=== PATIENT | male | born 1970 | race Caucasian/White ===

== ENCOUNTER 2017-11-10 08:00 | Outpatient (RCR) | payer BC, OTHER, SELFPAY ==
--- NOTE | 2017-07-22 16:05 | HP.PTEVAL ---
Patient's Visit Information MILDRED PINEDA is a 47 year old M referred to Physical Therapy by Sacha Romero DO with a diagnosis of L Massive RC repair on May 26, 2017. Date of Evaluation: 07/22/17 Physical Therapist: Rubia Camacho - Visit Plan Frequency: 1-2x /Week Duration: 4-6 Months Plan: 1X/week for 3 weeks for PROM (Dr Romero verball said to keep him around 130-140 degrees elevation and ER t0 approx 65 degrees) Dr Romero said he is ok with the pt being tight because he wants the shoulder to heal. He already took the pt out of the sling at 8 weeks cause the pt was complaining and he wanted to keep him in the sling till [address] Romero verbally the pt can start AAROM 11 weeks post op for [address]. [address] Romero pt is able to start light strengthening at 14 weeks (2-3#). Dr Romero said full go at 3 months from 07-22-2017. ++modalities PRN - Subjective Subjective: In the gym he was bench pressing mid February and and felt a tear. DOS was May 26 for L massive RC repair. He has done nothing for the last 8 weeks. Pt took his sling off at 8 weeks. said ok to start PT at 8 weeks (yesterday). 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 Pt reports that his pain is minimal. In the evenings he will ache a little. He is not sleeping well....last night was the first night to sleep in a bed. He is R handed. Back to driving. Still having trouble getting short and coat on. - Pain L shoulder pain Pain Intensity (Out of 10): 2 Pain Intensity Range: 3 - Objective PROM L Shoulder ER 60 degrees, Shoulder flexion 135 degrees,L shoulder Abd 125 degrees. Pt demonstrates good form with pendulum exercises - Goals Goal 1:: I HEP Goal Time Frame: 12-16 Weeks Goal 2:: Increase L shoulder AROM to full ROM at DC Goal Time Frame: 12-16 Weeks Goal 3:: Increase L shoulder strength to 4/5 all planes (ER, IR, flex, abd) at DC Goal Time Frame: 12-16 Weeks - Rehabilitation Potential Rehabilitation Potential: Good - Anticipated Interventions Patient/Client Instruction: Educate patient on: Plan of Care For the Purpose of:: To decrease pain, To increase ROM, To improve nutrient delivery to tissue, To improve muscle performance and motor function, To improve ability to perform ADL's, To increase tolerance to activity/condition/position, To improve performance and independence with ADL's, To improve ability of physical actions for home/community/work/leisure, To improve health of tissue, To increase flexibility/ROM Therapeutic Exercise to Include: Strength training, Postural training, Passive ROM, Active ROM, Scapular Strength/Stabilization For the Purpose of:: To decrease pain, To increase ROM, To improve nutrient delivery to tissue, To improve muscle performance and motor function, To improve ability to perform ADL's, To improve health of tissue, To decrease soft tissue restriction, To increase flexibility/ROM Manual Therapy Techniques to Include: Passive ROM For the Purpose of:: To increase ROM, To improve nutrient delivery to tissue, To improve muscle performance and motor function IF ES: Yes Cryotherapy (ice pack, ice massage): Yes Thermo therapy (hot pack): Yes For the Purpose of:: To decrease pain, To decrease swelling/inflammation, To improve nutrient delivery to tissue Thank you for the opportunity to evaluate your patient. For Medicare and Medicare HMO plans, please review the plan of care and approve it. It will need to be FAXED BACK to us at [phone] for Medicare purposes. Please let me know if there are questions or concerns regarding this plan of care. Physician Signature: Date:
--- NOTE | 2017-09-29 17:13 | HP.PTREVAL_ITS ---
Sacha Romero, DO, It has been my pleasure to treat MILDRED PINEDA over the last 17 visits for L Massive RC repair on May 26, 2017. Please see the progress note below for an update on the physical therapy plan of care! Subjective: Did well with new ex's last session - sore, but no pain. States he can still have some pain if he rolls over and sleeps on it, but other than that it's doing well. Remains compliant with HEP. Pt reports 4/10 pain if he lays on it wrong while sleeping other than that he is just achy. Objective/Function: Pt's AROM overhead demos less UT compensation than last week. Bee progressions well without incidence. Measured By PT: L shld flexion 155 degrees, L shld abd 155 degrees, IR at 90 degrees abd is 65 degrees and ER at 90 degrees abd is 66 degrees. L shld MMT: ER 3+/5, IR 4-/5, flexion and abd 4-/5. Plan Plan: Cont end-range of motion and light strengthening (2-3#). Dr Romero said full go strengthening at 3 months from 07-22-2017. Goals Goal 1:: I HEP Goal Time Frame: 12-16 Weeks Goal 2:: Increase L shoulder AROM to full ROM at DC Goal Time Frame: 12-16 Weeks Goal 3:: Increase L shoulder strength to 4/5 all planes (ER, IR, flex, abd) at DC Goal Time Frame: 12-16 Weeks Anticipated Interventions Patient/Client Instruction: Educate patient on: Plan of Care For the Purpose of:: To decrease pain, To increase ROM, To improve nutrient delivery to tissue, To improve muscle performance and motor function, To improve ability to perform ADL's, To increase tolerance to activity/condition/ position, To improve performance and independence with ADL's, To improve ability of physical actions for home/community/work/leisure, To improve health of tissue, To increase flexibility/ROM Therapeutic Exercise to Include: Strength training, Postural training, Passive ROM, Active ROM, Scapular Strength/Stabilization For the Purpose of:: To decrease pain, To increase ROM, To improve nutrient delivery to tissue, To improve muscle performance and motor function, To improve ability to perform ADL's, To improve health of tissue, To decrease soft tissue restriction, To increase flexibility/ROM Manual Therapy Techniques to Include: Passive ROM For the Purpose of:: To increase ROM, To improve nutrient delivery to tissue, To improve muscle performance and motor function IF ES: Yes Cryotherapy (ice pack, ice massage): Yes Thermo therapy (hot pack): Yes For the Purpose of:: To decrease pain, To decrease swelling/inflammation, To improve nutrient delivery to tissue Please do not hesitate to contact me at [phone] by phone or Fax: if you have questions or concerns regarding this new plan of care! Sincerely, Rubia Camacho
--- NOTE | 2018-01-29 12:52 | HP.PTDCNRP_ITS ---
HP - Discharge Summary (1) - Patient Information MILDRED PINEDA was seen in my office for initial evaluation on 07/22/17. The following Plan of Care was established for this patient: Initial Frequency: 1-2x /Week Initial Duration: 4-6 Months - Anticipated Interventions Patient/Client Instruction: Educate patient on: Plan of Care For the Purpose of:: To decrease pain, To increase ROM, To improve nutrient delivery to tissue, To improve muscle performance and motor function, To improve ability to perform ADL's, To increase tolerance to activity/condition/ position, To improve performance and independence with ADL's, To improve ability of physical actions for home/community/work/leisure, To improve health of tissue, To increase flexibility/ROM Therapeutic Exercise to Include: Strength training, Postural training, Passive ROM, Active ROM, Scapular Strength/Stabilization For the Purpose of:: To decrease pain, To increase ROM, To improve nutrient delivery to tissue, To improve muscle performance and motor function, To improve ability to perform ADL's, To improve health of tissue, To decrease soft tissue restriction, To increase flexibility/ROM Manual Therapy Techniques to Include: Passive ROM For the Purpose of:: To increase ROM, To improve nutrient delivery to tissue, To improve muscle performance and motor function IF ES: Yes Cryotherapy (ice pack, ice massage): Yes Thermo therapy (hot pack): Yes For the Purpose of:: To decrease pain, To decrease swelling/inflammation, To improve nutrient delivery to tissue This patient was last seen in our office 11/10/17. Pertinent comments regarding their Physical therapy will appear below: DC PT to I HEP program. Pt is doing well with his strengthening on his own. At this point I will be discontinuing this patient from physical therapy. I would be happy to see this patient again in the future if found appropriate by the physician. Thank you! Rubia Camacho
== END 2017-11-10 19:00 | disposition home or self-care (01) ==
LOC: PT 08:00
PROVIDERS: Family Provider Family Medicine; PCP Family Medicine; Visit Provider Orthopaedic Surgery
DX: M75.102 Unspecified rotator cuff tear or rupture of left shoulder, not specified as traumatic (principal)
CPT/HCPCS: 97110; 97140; 97161

== ENCOUNTER → 2018-03-29 11:55 | Outpatient (CLI) | payer BC, SELFPAY ==
[2018-03-29 12:31] LABS: Amphetamine Urine VISTA NEGATIVE (<1000 ng/mL); Barbiturate Urine VISTA NEGATIVE (< 200 ng/mL); Benzodiazepine Urine VISTA NEGATIVE (< 200 ng/mL); Cocaine Urine VISTA NEGATIVE (< 300 ng/mL); Ecstacy Urine VISTA NEGATIVE (< 500 ng/mL); Methadone Urine VISTA NEGATIVE (< 300 ng/mL); PCP Urine VISTA NEGATIVE (< 25 ng/mL); THC Urine VISTA NEGATIVE (< 50 ng/mL); Vista UDS pH Range 5
== END ==
PROVIDERS: Family Provider Family Medicine; PCP Family Medicine; Visit Provider Anesthesiology Pain Medicine
DX: F11.20 Opioid dependence, uncomplicated (principal)
CPT/HCPCS: 80307

== ENCOUNTER → 2018-10-01 08:16 | Outpatient (CLI) | payer BC, SELFPAY ==
--- NOTE | 2018-10-01 08:20 | RAD_ITS ---
STUDY: X-RAY - RIGHT KNEE REASON FOR EXAM: Male, 48 years old. Knee pain. TECHNIQUE: 4 view(s) of the knee. COMPARISON: None. FINDINGS: There are surgical screws in the distal femur and proximal tibia likely due to previous anterior cruciate ligament repair. Normal visualized proximal tibia and fibula. Normal proximal tibiofibular articulation. There is no demonstrated fracture. There is severe degenerative arthrosis of the medial femorotibial compartment with severe joint space narrowing. There is moderate degenerative arthrosis of the lateral femorotibial compartment with moderate joint space narrowing. There is moderate degenerative arthrosis of the patellofemoral articulation. There is a soft tissue prominence in the suprapatellar region suggesting a small volume joint effusion. The soft tissue structures are unremarkable. RAD/Knee 4 or More Views IMPRESSION: 1. Postoperative changes. 2. Severe degenerative arthrosis. 3. Possible small joint effusion. Electronically Signed: Artem Herrera MD at 12:35 EST Tel , Service support ,
== END ==
PROVIDERS: Family Provider Family Medicine; PCP Family Medicine; Referring Provider Orthopaedic Surgery; Visit Provider Orthopaedic Surgery
DX: M25.561 Pain in right knee (principal)
CPT/HCPCS: 73564

== ENCOUNTER → 2018-12-09 11:56 | Outpatient (CLI) | payer BC, SELFPAY ==
[2018-01-26 09:19] VITALS: BMI 25.7
[2018-12-09 12:44] LABS: Amphetamine Urine VISTA NEGATIVE (<1000 ng/mL); Barbiturate Urine VISTA NEGATIVE (< 200 ng/mL); Benzodiazepine Urine VISTA NEGATIVE (< 200 ng/mL); Cocaine Urine VISTA NEGATIVE (< 300 ng/mL); Ecstacy Urine VISTA NEGATIVE (< 500 ng/mL); Methadone Urine VISTA NEGATIVE (< 300 ng/mL); PCP Urine VISTA NEGATIVE (< 25 ng/mL); THC Urine VISTA NEGATIVE (< 50 ng/mL); Vista UDS pH Range 5
== END ==
PROVIDERS: Family Provider Family Medicine; PCP Family Medicine; Referring Provider Anesthesiology Pain Medicine; Visit Provider Anesthesiology Pain Medicine
DX: F11.20 Opioid dependence, uncomplicated (principal)
CPT/HCPCS: 80307

== ENCOUNTER 2018-12-21 18:21 | Emergency (ER) | payer BC, SELFPAY ==
[2018-12-21 18:22] VITALS: BP 159/88; PULSE 90; RESP 16; TEMP 36.6; O2SAT 97; BMI 25.0
--- NOTE | 2018-12-21 18:54 | RAD_ITS ---
STUDY: X-RAY - LEFT HUMERUS REASON FOR EXAM: Male, 48 years old. Pain. TECHNIQUE: 2 view(s) of the humerus. COMPARISON: None. FINDINGS: Normal visualized humerus. There is no demonstrated fracture or osseous destructive process. There is no demonstrated soft tissue abnormality. RAD/Humerus min 2 Views IMPRESSION: Normal x-ray examination of the humerus. Electronically Signed: Ezekiel Bearden MD at 19:15 EDT , Service support ,
--- NOTE | 2018-12-21 19:36 | ED.DCSUM_ITS ---
- ER Visit Summary Date of Service: 12/21/18 Chief Complaint: Left arm pain History of Present Illness: The patient is a 48 M who was swinging a baseball bat tonight and felt a pulling sensation in his left distal upper arm. He is right-hand dominant. He has full range of motion of the left arm with no pa resthesias. He has had prior left rotator cuff surgery. Physical Examination: Vital signs significant for blood pressure of 159/88, otherwise unremarkable. Patient sitting upright in bed no acute distress. Head neck examination is normal. Heart is regular rate and rhythm. Lung sounds are clear. Left upper extremity examination reveals mild tenderness to palpation of the dis farida left bicep. He has full range of motion of the elbow and shoulder. He has normal sensation normal pulses on testing. No overlying skin changes are noted. Test Results: Left humerus x-rays are obtained with no evidence of bony abnormality. Emergency Department Course and Treatment: I discussed with the patient I believe he has a strain of with the bicep tendons. This should heal on its own. He is already on tramadol twice a day for an arthritic knee. He will be written for anti-inflammatories to take in addition if needed. Patient will follow with his primary care physician. Treatment Plan: [] Disposition: Discharge Impression: Left biceps strain This note was generated with [employer] dictation software. It may contain incorrect words, spelling, and punctuation that were not noted in review of the chart prior to signing ED Disposition - Plan for ED Patient: Referrals: Deuce Chang DO [Primary Care Provider] -
--- NOTE | 2018-12-21 19:36 | ED.DEP ---
ED Disposition - Plan for ED Patient: Disposition: Home or Assisted Living Instructions: ED Strain Muscle Ext Prescriptions: Naproxen [Naprosyn] 500 mg PO BID PRN PRN #20 tablet PRN Reason: Pain Referrals: Deuce Chang DO [Primary Care Provider] - 1-2 Weeks
[2018-12-21 19:56] VITALS: BP 126/75; PULSE 71; RESP 16; O2SAT 99
== END 2018-12-21 19:57 | disposition home or self-care (01) ==
PROVIDERS: Emergency Provider Emergency Medicine; Family Provider Family Medicine; PCP Family Medicine
DX: S46.212A Strain of muscle, fascia and tendon of other parts of biceps, left arm, initial encounter (principal); X50.9XXA Other and unspecified overexertion or strenuous movements or postures, initial encounter; Y93.64 Activity, baseball; Y92.9 Unspecified place or not applicable; Y99.8 Other external cause status; Z87.828 Personal history of other (healed) physical injury and trauma
CPT/HCPCS: 73060; 99282

== ENCOUNTER → 2019-08-09 10:26 | Outpatient (CLI) | payer BC, SELFPAY ==
[2018-12-24 07:52] VITALS: BMI 25.0
[2019-08-09 11:32] LABS: Amphetamine Urine VISTA NEGATIVE (<1000 ng/mL); Barbiturate Urine VISTA NEGATIVE (< 200 ng/mL); Benzodiazepine Urine VISTA NEGATIVE (< 200 ng/mL); Cocaine Urine VISTA NEGATIVE (< 300 ng/mL); Ecstacy Urine VISTA NEGATIVE (< 500 ng/mL); Methadone Urine VISTA NEGATIVE (< 300 ng/mL); PCP Urine VISTA NEGATIVE (< 25 ng/mL); THC Urine VISTA NEGATIVE (< 50 ng/mL); Vista UDS pH Range 5
== END ==
PROVIDERS: Family Provider Family Medicine; PCP Family Medicine; Referring Provider Anesthesiology Pain Medicine; Visit Provider Anesthesiology Pain Medicine
DX: F11.20 Opioid dependence, uncomplicated (principal)
CPT/HCPCS: 80307

== ENCOUNTER → 2020-02-13 08:42 | Outpatient (CLI) | payer BC, SELFPAY ==
[2019-10-29 12:12] VITALS: BMI 25.0
[2020-02-13 09:15] LABS: Hemoglobin 14.3 g/dL (13.0-16.5); Mean Corp Hgb Conc 32.5 g/dL (32-36); Mean Corpuscular Hgb 32.4 pg (27.0-32.0); Mean Corpuscular Volume 99.8 fL (80-94); Mean Platelet Vol. 9.8 fl (6.2-12.0); Platelet Count 291 K/mm3 (150-450); RBC Distribution Width CV 13.1 % (11.6-14.6); RBC Distribution Width SD 48.5 fl (35.1-43.9); Red Blood Count 4.41 M/mm3 (4.6-6.2); White Blood Count 4.9 K/mm3 (4.4-11.0)
[2020-02-13 09:41] LABS: Vitamin D,25 Hydroxy 36.1 ng/mL
[2020-02-13 09:52] LABS: AST(SGOT) 22 U/L (15-37); Alanine Aminotransfer ALT/SGPT 29 U/L (16-61); Albumin, Serum 3.6 g/dL (3.2-5.0); Alkaline Phosphatase 53 U/L (45-117); Anion Gap 7 (5-15); BUN 20 mg/dL (7-18); BUN/Creat Ratio 16.7 RATIO (10-20); Calcium,Total 8.7 mg/dL (8.5-10.1); Chloride 107 mmol/L (98-107); Cholesterol 196 mg/dL (200); EST Glomerular Filtration Rate 68 mL/min (>60); Est Glom Filt Rate - Afr Amer 82 mL/min (>60); Globulin 3.5 g/dL (2.2-4.2); Glucose 96 mg/dL (74-106); High Density Lipoprotein 36 mg/dL; PSA,Total- Diagnostic 0.36 ng/mL (0.0-4.0); Potassium 3.7 mmol/L (3.5-5.1); Protein, Total 7.1 g/dL (6.4-8.2); Sodium Level 141 mmol/L (136-145); Thyroid Stim Hormone (TSH) 1.53 uIU/mL (0.358-3.74); Triglycerides 113 mg/dL; Very Low Density Lipoprotein 23 mg/dL (5-40)
[2020-02-16 14:08] LABS: Testosterone, Free 14.76 ng/dL (5.00-21.00)
[2020-02-16 15:30] LABS: Testosterone, % Free 1.82 % (1.50-4.20); Testosterone, Total 811 ng/dL (264-916)
== END ==
PROVIDERS: PCP Family Medicine; Referring Provider Family Medicine; Visit Provider Family Medicine
DX: Z00.00 Encounter for general adult medical examination without abnormal findings (principal); R53.83 Other fatigue
CPT/HCPCS: 36415; 80053; 80061; 82306; 84153; 84402; 84403; 84443; 85027

== ENCOUNTER → 2020-02-15 11:34 | Outpatient (CLI) | payer BC, SELFPAY ==
[2019-10-29 12:12] VITALS: BMI 25.0
[2020-02-15 14:21] LABS: Amphetamine Urine VISTA NEGATIVE (<1000 ng/mL); Barbiturate Urine VISTA NEGATIVE (< 200 ng/mL); Benzodiazepine Urine VISTA NEGATIVE (< 200 ng/mL); Cocaine Urine VISTA NEGATIVE (< 300 ng/mL); Ecstacy Urine VISTA NEGATIVE (< 500 ng/mL); Methadone Urine VISTA NEGATIVE (< 300 ng/mL); PCP Urine VISTA NEGATIVE (< 25 ng/mL); THC Urine VISTA NEGATIVE (< 50 ng/mL); Vista UDS pH Range 5
== END ==
PROVIDERS: PCP Family Medicine; Referring Provider Anesthesiology Pain Medicine; Visit Provider Anesthesiology Pain Medicine
DX: F11.20 Opioid dependence, uncomplicated (principal)
CPT/HCPCS: 80307

== ENCOUNTER → 2020-03-20 | Outpatient (CLI) | payer BC, SELFPAY ==
[2019-10-29 12:12] VITALS: BMI 25.0
== END | disposition home or self-care (01) ==
LOC: LABSPEC 03-21 13:39
PROVIDERS: PCP Family Medicine; Referring Provider Internal Medicine; Visit Provider Internal Medicine
DX: Z78.9 Other specified health status (principal); Z71.84 Encounter for health counseling related to travel
CPT/HCPCS: 87635; G2023; U0003

== ENCOUNTER → 2020-11-26 12:50 | Outpatient (CLI) | payer BC, SELFPAY ==
[2019-10-29 12:12] VITALS: BMI 25.0
--- NOTE | 2020-11-26 12:54 | EKG12_ITS ---
Test Reason : PREOP Blood Pressure : / mmHG Vent. Rate : 069 BPM Atrial Rate : 069 BPM P-R Int : 150 ms QRS Dur : 090 ms QT Int : 400 ms P-R-T Axes : 066 063 045 degrees QTc Int : 428 ms Normal sinus rhythm Normal ECG Confirmed by ZOHRA HERNANDEZ, ROBIN ([id number]), mapping editor MELISSA PEDROZA ([id number]) on 11/27/2020 9:06:54 AM Referred By: Steve Mckeon Confirmed By:ROBIN العلي MD
--- NOTE | 2020-11-26 13:05 | CT_ITS ---
STUDY: CT SCAN LOWER EXTREMITY RIGHT REASON FOR EXAM: Male, 50 years old. VALGUS DEFORMITY,NOT ELSEWHERE CLASSIFIED,R KNEE RADIATION DOSAGE (If Supplied By Facility): CTDIvol = ( 18.76 ) mGy, DLP = ( 1341.38 ) mGycm. Individualized dose optimization techniques were used for this CT.? TECHNIQUE: Multiple axial tomographic images of the right hip joint, right knee joint and right ankle joint were obtained. Coronal and sagittal reconstructions obtained as well. COMPARISON: None. FINDINGS: Imaging of the hip joint was performed. There is good alignment. No significant abnormality is seen. Moderate to marked degree of joint space narrowing of the medial compartment of the knee joint with degenerative spur formation along the distal medial femoral condyle. Small degenerative spurs also seen along the medial tibial plateau. There is an 8 mm subchondral cyst within the proximal tibial metaphysis. There is also evidence of a 8mm cyst in the subchondral region of the medial tibial plateau with evidence of degenerative spur formation along the lateral femoral condyle and lateral tibial plateau. Marked degree of osteoarthritis with degenerative bone spur of the patellofemoral joint. The patient is status post anterior cruciate ligament repair. Imaging of the ankle joint was obtained. No significant abnormality is seen. CT/Extremity Lower without Contra IMPRESSION: Degenerative changes of the knee joint as described. Evidence of prior anterior cruciate ligament repair. Electronically Signed: Sebastian Buckley MD at 13:58 EDT , Service support ,
[2020-11-26 14:25] LABS: Absolute Lymphocyte Count 2.06 X10^3/uL (0.83-4.51); Absolute Neutrophil Count 4.2 X10^3/uL (2.0-7.7); Basophil# 0.08 X10^3/uL; Basophil% 1.1 % (0-1); Eosinophil# 0.47 X10^3/uL; Eosinophils% 6.4 % (0-5); Hematocrit 41.1 % (40-54); Hemoglobin 13.5 g/dL (13.0-16.5); Lymphocyte # 2.06 X10^3/ul (4.0); Lymphocyte % 27.9 % (19-41); Mean Corp Hgb Conc 32.8 g/dL (32-36); Mean Corpuscular Hgb 32.9 pg (27.0-32.0); Mean Corpuscular Volume 100.2 fL (80-94); Mean Platelet Vol. 10.4 fl (6.2-12.0); Monocyte# 0.56 X10^3/uL; Monocyte% 7.6 % (0-10); NRBC Flagged by Analyzer 0 % (0-5); Neutrophil # 4.19 X10^3/uL (2.7-7.7); Neutrophil % 56.6 % (47-70); Platelet Count 319 K/mm3 (150-450); RBC Distribution Width CV 13.3 % (11.6-14.6); RBC Distribution Width SD 49.1 fl (35.1-43.9); White Blood Count 7.4 K/mm3 (4.4-11.0)
[2020-11-26 14:48] LABS: Anion Gap 6 (5-15); BUN 21 mg/dL (7-18); BUN/Creat Ratio 16.3 RATIO (10-20); Calcium,Total 8.8 mg/dL (8.5-10.1); Chloride 104 mmol/L (98-107); Creatinine, Serum 1.29 mg/dL (0.70-1.30); EST Glomerular Filtration Rate 62 mL/min (>60); Est Glom Filt Rate - Afr Amer 75 mL/min (>60); Glucose 76 mg/dL (74-106); Potassium 3.7 mmol/L (3.5-5.1); Sodium Level 139 mmol/L (136-145)
== END ==
PROVIDERS: Physician Assistant Surgical; PCP Family Medicine; Referring Provider Specialist; Visit Provider Specialist
DX: Z01.812 Encounter for preprocedural laboratory examination (principal); Z01.810 Encounter for preprocedural cardiovascular examination; M21.061 Valgus deformity, not elsewhere classified, right knee
CPT/HCPCS: 36415; 73700; 80048; 85025; 93005

== ENCOUNTER 2020-12-13 22:13 | Emergency (ER) | payer BC, SELFPAY ==
[2019-10-29 12:12] VITALS: BMI 25.0
[2020-12-13 22:14] VITALS: BP 100/60; PULSE 107; RESP 18; TEMP 36.4; O2SAT 96; BMI 24.4
--- NOTE | 2020-12-13 22:23 | ED.VIS.GEN ---
History of Present Illness Chief Complaint: Lower Extremity Injury Informant: Patient, Significant Other Onset: Hours Context: Sudden Onset Timing: Continuous - Postop bleeding Quality: Postop bleeding Location: Right total knee arthroplasty today Current Severity: Mild Maximum Severity: Mild Worsened by: Nothing Relieved by: Nothing Associated Symptoms: None Narrative: Patient is a 50-year-old male who had a right total knee arthroplasty performed by Dr. Yonis Mckeon at 1030. Patient states he went home at 1330. Patient noted his dressing was saturated and presents because of bleeding. He was standing when the noted the bleeding. Presently has no discomfort. He has no history of bruising easily or problems with bleeding. Prior similar symptoms: No Recent Illness/Hospitalization: Yes - Past Medical History (1) Scoliosis Status: Acute Past Medical History - Allergies and Home Meds Allergies/Adverse Reactions: Allergies No Known Allergies Allergy (Verified 12/13/20 22:16) Primary Care Physician: Deuce Chang DO [Primary Care Provider] - Steve Mckeon MD [STAFF PHYSICIAN] - Prior records reviewed: Yes Surgical History: total knee arthroplasty Lives: Spouse/ Significant Other Smoking Status: Never smoker Alcohol: Rare Drugs: None Review of Systems General: Denies: Chills, Fever, Malaise, Subjective Gastrointestinal: Denies: Nausea, Vomiting Musculoskeletal: Denies: Myalgias, Arthralgias, Swelling, Extremity Pain Skin: Reports: Wounds - Postop bleeding. Denies: Rash Neurological: Denies: Weakness, Parasthesia, Numbness Hematologic: Denies: Easy bruising, Easy bleeding Physical Exam Vital Signs/Narrative: Vital Signs Temp Pulse Resp BP Pulse Ox 12/13/20 22:14 97.6 F L 107 H 18 100/60 96 Inital Vital Signs reviewed: Yes General: Well nourished, Well developed, No Acute Distress Head: Normocephalic, Atraumatic Eyes: Perrl, EOMI Cardiovascular: Regular rate, Regular rhythm Respiratory: No distress Extremities: Nontender, No edema, - - Incision is intact. There is slight blood noted inferior aspect of the incision site. There is no fluctuance. There is no erythema, warmth or induration. There is bruising laterally and medially, which is expected. Skin: Normal color, No rash Neurological: Alert, Oriented x3. Negative for: Normal Sensation, Normal Gait Psychological: Normal affect Diagnostic/Tx/Re-eval - Medical Decision Making Prior to removing the dressing Dr. Flaquito garza was paged since he is on-call. He agrees with removing the dressing. He recommended A&E ointment and dressing with Loco wrap. He recommends the patient going home elevating his leg and applying a weight over the area. Dressing was removed. There is no active bleeding. The incision site was clean. Unable to express any blood. Nurse is applying dressing. Will observe for 3245 minutes and if there is no additional bleeding he will be discharged to home to follow-up with Dr. Mckeon. Patient was observed for 1.25 hours. There is no evidence of any additional bleeding. He will be discharged home. ED Disposition - Plan for ED Patient: Disposition: Home or Assisted Living Diagnosis: Postoperative bleeding from incision Instructions: ED Post Op Wound Check, Bleeding Referrals: Deuce Chang DO [Primary Care Provider] - Steve Mckeon MD [STAFF PHYSICIAN] -
[2020-12-13 23:49] VITALS: BP 132/67; PULSE 90; RESP 18; O2SAT 97
== END 2020-12-13 23:50 | disposition home or self-care (01) ==
LOC: ED 22:52
PROVIDERS: Emergency Provider Emergency Medicine; PCP Family Medicine
DX: M96.830 Postprocedural hemorrhage of a musculoskeletal structure following a musculoskeletal system procedure (principal); Y83.4 Other reconstructive surgery as the cause of abnormal reaction of the patient, or of later complication, without mention of misadventure at the time of the procedure; Z96.651 Presence of right artificial knee joint
CPT/HCPCS: 99282

== ENCOUNTER 2021-04-06 12:56 | Emergency (ER) | payer BC, SELFPAY ==
[2021-04-06 12:56] VITALS: BP 134/85; PULSE 84; RESP 16; TEMP 36.7; O2SAT 99; BMI 25.7
[2021-04-06] MEDS: Diphth,Pertuss(Acell),Tet Vac 0.5 ML Vial IM (14:19)
--- NOTE | 2021-04-06 15:03 | EX.ED.UPPERE ---
HPI History of Present Illness Chief Complaint: Laceration Informant: patient Onset/Context/Timing Onset: Today Current Severity: Mild Maximum Severity: Mild Narrative Narrative: Patient presents with left thumb laceration. He was cutting corn off the cob when the slicer slipped and cut his left thumb. He is right-hand dominant. He is unsure of his last tetanus update. PFSH PFSH no medical history Home Medications meloxicam 7.5 mg PO DAILY 12/21/18 [History Last Taken Unknown] tramadol 50 mg tablet 50 mg PO BID 09/02/19 [History Last Taken Unknown] benzonatate 100 mg capsule 100 mg PO TID PRN #30 cap 10/29/19 [Rx Last Taken Unknown] Allergy/AdvReac Type Severity Reaction Status Date / Time No Known Allergies Allergy Verified 04/06/21 12:58 Surgical History achilles tendon reconstruction H/O arthroscopic knee surgery H/O nasal septoplasty S/P ACL reconstruction S/P left rotator cuff repair S/P right knee arthroscopy Social History Smoking Status: Never smoker alcohol intake: current alcohol intake frequency: a few times a week ROS ROS ED Constitutional Constitutional ED: Denies chills or fever(s) Eyes Eyes: Denies change in vision ENT ENT ED: Denies sore throat Cardiovascular Cardiovascular: Denies chest pain Respiratory/Chest Respiratory/Chest: Denies cough or dyspnea Gastrointestinal Gastrointestinal: Denies abdominal pain, diarrhea, nausea or vomiting Genitourinary Genitourinary ED: Denies dysuria Musculoskeletal Musculoskeletal: Reports other Details: Left thumb laceration ; Denies back pain Integumentary Denies rash Neurologic Neurologic: Denies headache(s) or weakness Psychiatric Psychiatric: Denies anxiety or depression EXAM Physical Exam Const Vital Signs: 04/06/21 12:56 Temperature 98.0 F Temperature Source Temporal Pulse Rate 84 Respiratory Rate 16 Blood Pressure 134/85 H Blood Pressure Mean 101 Pulse Ox 99 Oxygen Delivery Method Room Air Positive well nourished and well developed General Appearance ED: well developed HEENT Reports normocephalic and head/scalp atraumatic Eyes PERRL and EOMs intact bilaterally Neck supple Chest Wall inspection of chest normal and palpation of chest normal Resp normal respiratory effort and clear to auscultation bilaterally Cardio regular rate and regular rhythm GI normal to inspection, nondistended, normoactive bowel sounds Palpation: soft Extremity Extremity Narrative: Skin avulsion along the left thumb. Wound measures 2 cm x 4 mm. Moderate bleeding is noted. Neuro oriented x3 and no sensory deficits noted Sensorium / Orientation: alert Motor Exam: strength 5/5 throughout Psych mental status grossly normal Skin no rashes or lesions noted Skin Narrative: Left thumb skin avulsion as noted above MDM MDM MDM Narrative Medical decision making narrative: Pressure dressing is applied and patient elevates his hand above the level of his heart. Treatment and Re-Evaluation Comments:: On repeat evaluation bleeding is improved. Wound is cleansed and Surgicel was placed. Pressure dressing is reapplied. On final repeat check bleeding is under good control. He will leave pressure dressing in place. Wound care instructions are provided. Tetanus update has been given. Discharge Plan Triage Chief Complaint: Laceration ED Provider: Vanda Wynn Dx/Rx/DC Orders Clinical Impression: Avulsion of skin of finger Instructions: ED Skin Avulsion Prescriptions: No Action tramadol 50 mg tablet 50 mg PO BID RF: 0 benzonatate [Tessalon Perles] 100 mg capsule 100 mg PO TID PRN (Reason: cough) Qty: 30 RF: 0 meloxicam 15 MG tablet 7.5 mg PO DAILY RF: 0 Referrals: LEMUEL DESIR [Other] - As Needed Disposition Disposition: Home, Self Care Discharge Date/Time: 04/06/21 15:19
[2021-04-06 15:13] VITALS: BP 147/94; PULSE 89; RESP 16
== END 2021-04-06 15:19 | disposition home or self-care (01) ==
PROVIDERS: Emergency Provider Emergency Medicine; PCP Family Medicine
DX: S61.012A Laceration without foreign body of left thumb without damage to nail, initial encounter (principal); W26.8XXA Contact with other sharp object(s), not elsewhere classified, initial encounter; Y93.G1 Activity, food preparation and clean up; Y92.9 Unspecified place or not applicable; Y99.8 Other external cause status
CPT/HCPCS: 90471; 90715; 99282

== ENCOUNTER 2024-02-29 08:45 | Day surgery (SDC) | payer BC, SELFPAY ==
[2024-02-29] VITALS (8 sets, daily range): BP systolic 97–129; BP diastolic 57–89; PULSE 67–86; RESP 14–16; TEMP 36.1–36.6; O2SAT 95–97; BMI 26.7
[2024-02-29] MEDS: Lactated Ringers 1,000 ML 15 ML IV (09:00)
--- NOTE | 2024-02-29 09:56 | HP.PCM_ITS ---
HPI - General General Date of Admission: 02/29/24 Date of Service: 02/29/24 Chief Complaint: Screening colonoscopy HPI Narrative MILDRED PINEDA, is a 53 M who presents today for screening colonoscopy. He has a positive family history of polyps in 2 second-degree relatives and colon cancer in a second-degree relative. [facility] Medical History (Updated 02/25/24 @ 14:12 by Laine Fine) Wears contact lenses Non-smoker History of stress test Home Medications ?Medication ?Instructions ?Recorded ?Last Taken ?Type NK 02/25/24 Unknown History Allergy/AdvReac Type Severity Reaction Status Date / Time No Known Allergies Allergy Verified 02/29/24 09:19 Family History (Updated 01/28/24 @ 11:18 by Karly Lundberg) Father Colon polyps Aunt Colon polyps Grandmother Colon cancer Surgical History (Updated 02/25/24 @ 14:12 by Laine Fine) History of wisdom tooth extraction History of repair of right rotator cuff History of total right knee replacement Hx of colonoscopy H/O nasal septoplasty achilles tendon reconstruction S/P left rotator cuff repair S/P right knee arthroscopy H/O arthroscopic knee surgery S/P ACL reconstruction Social History (Updated 01/28/24 @ 11:18 by Karly Lundberg) household members: spouse current occupational status: employed Smoking Status: Never smoker alcohol intake: current alcohol intake frequency: a few times a week substance use type: does not use ROS Review of Systems ROS Unobtainable: other Constitutional Constitutional: Denies fatigue, fever(s), poor appetite, weight gain or weight loss ENT HEENT: Denies mouth lesions Cardiovascular Cardiovascular: Denies abdominal bloating, abdominal edema or abdominal pain Respiratory/Chest Respiratory/Chest: Denies change in mental status, change in phlegm color, chest congestion or chest tightness Gastrointestinal Gastrointestinal: Denies belching, bloating, change in bowel habits, change in stool character, chewing difficulty, coffee ground emesis, constipation, cramping, diarrhea, dyspepsia, dysphagia, early satiety, excessive flatus, fecal incontinence, heartburn, hematemesis, hematochezia, hemorrhoids, loose stools, melena, nausea, odynophagia, rectal bleeding, tenesmus, vomiting or weight changes Genitourinary Genitourinary: Denies abdominal discomfort, burning urination or itching Musculoskeletal Musculoskeletal: Reports as per HPI; Denies muscle weakness or myalgias Integumentary Integumentary: Denies jaundice Neurologic Neurologic: Denies lack of coordination or weakness Psychiatric Psychiatric: Denies confusion, depression, memory loss, mood swings, paranoia or suicidal ideation Endocrine Endocrinology: Denies systems reviewed and no addt'l complaints, except as documented Hematologic/Lymphatic Hematologic/Lymphatic: Denies anemia, easy bleeding, easy bruising or lymphadenopathy Allergic/Immunologic Allergic/Immunologic: Denies systems reviewed and no addt'l complaints, except as documented Vital Signs Vital Signs Vital Signs: 02/29/24 09:20 02/29/24 09:20 Temperature 97 F L Temperature Source Temporal Pulse Rate 86 Respiratory Rate 16 Respiratory Pattern Normal Blood Pressure 129/85 H Blood Pressure Mean 99 Blood Pressure Source Monitor Blood Pressure Position Sitting Blood Pressure Location Right Arm Pulse Ox 97 Oxygen Delivery Method Room Air Weight Weight: 197 lb 5.019 oz Body Mass Index (BMI) 26.7 Physical Exam Const alert, oriented x3, no apparent distress, healthy appearing and well nourished General Appearance: cooperative, comfortable, well kempt and well developed Orientation / Consciousness: awake and oriented to person HEENT Head and Scalp: normocephalic and atraumatic Face and Sinus: normal facial exam Mouth: oral and palatal mucosa normal Eyes General Eye: normal appearance of both eyes Neck full ROM Lymph Lymphatic: no lymphadenopathy noted Chest inspection of chest normal Resp normal respiratory effort and no use of accessory muscles Cardio regular rate and regular rhythm GI normal to inspection, nondistended, normoactive bowel sounds, soft to palpation, non-tender, non-distended and no masses Auscultation: normoactive bowel sounds Palpation: soft Percussion: normal to percussion Rectal Exam: visual inspection normal and normal sphincter tone no CVA tenderness Back/Spine no CVA tenderness and normal ROM Extremity normal to inspection Peripheral Pulses: Yes pulses 2+ throughout Skin no rashes or lesions noted General Skin Exam: no breakdown, elasticity normal and turgor normal Neuro oriented x3 Motor Exam: strength 5/5 throughout Psych mental status grossly normal Appearance: grossly normal Attitude: calm Activity / Motor Behavior: appropriate eye contact Speech: normal speech Thought Process: normal thought process Thought Content: normal thought content Attention / Concentration: attention grossly intact Memory / Cognition: memory grossly intact Insight: insight good Judgement: judgement good Assessment & Plan Assessment/Plan (1) Encounter for screening for malignant neoplasm of colon: PLAN: He was explained alternatives, risk, benefits including not withstanding bleeding, infection, sepsis, perforation, need for emergent surgery and . He will have an ASA of 3.
--- NOTE | 2024-02-29 10:00 | PRE.ANES_ITS ---
ASA Classification* ASA Classification ASA Classification: 2 Assessment & Plan Anesthesia* Anesthesia Assessment Anesthesia Assessment: Discussed sedation and/or anesthesia options, risks, benefits, and alternatives with patient/parents/legal guardian/POA. Questions invited. The patient/parents/legal guardian/POA seems to understand and agrees to proceed with anesthesia plan. Reviewed the physical assessment, medical history, allergy history and patient home medications list prior to surgery/procedure/anesthetic and documented any changes. Performed airway and anesthesia risk assessments. 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 When Was Last Pacemaker Check QUESTION #4 FULL TEXT: You/Your Family Experience fever (hyperthermia) with Anesthesia Last Oral Intake Last Oral intake: Last Oral Intake NPO since 06:00 02/29/24 09:20 Meds taken in AM with sips of No 02/29/24 09:20 water? Meds patient instructed to patient took prep at 6 AM take am of surgery PONV PONV - assistant branch manager: PONV - assistant branch manager Female No 02/25/24 14:07 HX of Motion Sickness No 02/25/24 14:07 HX of N/V After Surgery No 02/25/24 14:07 Non-Smoker Yes 02/25/24 14:07 Duration of Surgery greater No 02/25/24 14:07 than 60 minutes Number of Risk Factors 1 02/25/24 14:07 PONV Score Low Risk 02/25/24 14:07 Height & Weight Height & Weight: Anesthesia: Height & Weight Height 6 ft 02/29/24 09:20 Weight: 89.5 kg 02/29/24 09:20 Body Mass Index (BMI) 26.7 02/29/24 09:20 Respiratory Assessment Respiratory Assessment - assistant branch manager: Respiratory Tract Infection Hx - assistant branch manager Hx Respiratory Tract Infection No 02/25/24 14:07 STOP Sleep Apnea STOP Sleep Apnea - assistant branch manager: STOP Sleep Apnea - assistant branch manager Hx Hypertension No 02/25/24 14:07 Hx Sleep Apnea No 02/25/24 14:07 CPAP No 05/26/17 15:02 BIPAP No 05/22/17 08:13 Do you snore loudly (louder No 02/25/24 14:07 than talking or can be heard Do you often feel tired/ No 02/25/24 14:07 fatigued/ sleepy during daytime? Has anyone observed you stop No 02/25/24 14:07 breathing during sleep? STOP Results Negative 02/25/24 14:07 QUESTION #5 FULL TEXT : Do you snore loudly (louder than talking or can be heard through closed doors)? 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 Specify any problems Hx of Preganancy in last 3 N/A 02/25/24 14:07 Months Nurse Filling Out Transfusion NBUCHER 02/25/24 14:07 & Questions: Date: 02/25/24 02/25/24 14:07 Time: 14:08 02/25/24 14:07 Patient unable to answer at this time (ie. confused, unrespo /Reproduction History /Reproductive History - assistant branch manager: /Reproductive Hx- assistant branch manager Hx Now No 02/25/24 14:07 Gestational Age (in weeks): EDC: Hx Hx Para Hx Section SAB No 02/25/24 14:07 Active Medications Active Medications: Current Medications Generic Name Dose Route Start Last Admin Trade Name Freq PRN Reason Stop Dose Admin Lactated Ringer's 1,000 mls @ 15 mls/hr 02/29/24 09:00 02/29/24 09:00 IV 15 mls/hr .Q48H MARC Administration Anesthesia Focused Assessment* Temperature: 97 F Pulse Rate: 86 Blood Pressure: 129/85 Respiratory Rate: 16 Pulse Ox: 97 Oxygen Delivery Method: Room Air Airway Assessment Mouth opens: 2 cm Mallampati Score: IV Teeth Condition: Missing (one lower left molar missing) Neck Range of motion (ROM): Full ROM Focused Labs Anesthesia Preop lab: CBC WBC 7.4 K/mm3 (4.4-11.0) 11/26/20 13:28 RBC 4.10 M/mm3 (4.6-6.2) L 11/26/20 13:28 Hgb 13.5 g/dL (13.0-16.5) 11/26/20 13:28 Hct 41.1 % (40-54) 11/26/20 13:28 Plt Count 319 K/mm3 (150-450) 11/26/20 13:28 CHEMISTRY Potassium 3.7 mmol/L (3.5-5.1) 11/26/20 13:28 Sodium 139 mmol/L (136-145) 11/26/20 13:28 BUN 21 mg/dL (7-18) H 11/26/20 13:28 Creatinine 1.29 mg/dL (0.70-1.30) 11/26/20 13:28 Glucose 76 mg/dL (74-106) 11/26/20 13:28 TSH 1.53 uIU/mL (0.358-3.74) 02/13/20 08:51 COAG Review of Systems (Anesthesia) ROS Narrative System reviewed and no additional complaints, except as documented. [facility] Medical History Wears contact lenses Non-smoker History of stress test Home Medications ?Medication ?Instructions ?Recorded ?Last Taken ?Type NK 02/25/24 Unknown History Allergy/AdvReac Type Severity Reaction Status Date / Time No Known Allergies Allergy Verified 02/29/24 09:19 Family History Father Colon polyps Aunt Colon polyps Grandmother Colon cancer Surgical History History of wisdom tooth extraction History of repair of right rotator cuff History of total right knee replacement Hx of colonoscopy H/O nasal septoplasty achilles tendon reconstruction S/P left rotator cuff repair S/P right knee arthroscopy H/O arthroscopic knee surgery S/P ACL reconstruction Social History household members: spouse current occupational status: employed Smoking Status: Never smoker alcohol intake: current alcohol intake frequency: a few times a week substance use type: does not use
--- NOTE | 2024-02-29 10:45 | PCM.POST.ANE ---
Anesthesia: Postop Eval I Current Vital Signs Temperature: 97.4 F Pulse Rate: 67 Blood Pressure: 120/83 Respiratory Rate: 14 Pulse Ox: 97 Oxygen Delivery Method: Room Air Assessment Airway patent: Yes Spontaneous unlabored respirations: Yes Mental status: Awake and Calm nausea: No Vomiting: No Anesthesia Complication: No Fluid Hydration Crystalloid volume administer (ml): 600 Total IV fluid infused: 600 Progress Note Anesthesia document: Postop Eval 1 completed: Yes
--- NOTE | 2024-02-29 10:53 | OP.COLON_ITS ---
Patient Name: Glenn Santiago Procedure Date: 02/29/2024 10:23 AM Date of : 1970 Age: 53 Procedure: Colonoscopy Indications: Screening for colorectal malignant neoplasm Providers: DO Rianna Guevara MD: Deuce Chang Medicines: Monitored Anesthesia Care Patient Profile: This is a 53 year old male. Refer to note in patient chart for documentation of history and physical. Last Colonoscopy: 10 years ago. Complications: No immediate complications. Procedure: Pre-Anesthesia Assessment: - Prior to the procedure, a History and Physical was performed, and patient medications and allergies were reviewed. The patient is competent. The risks and benefits of the procedure and the sedation options and risks were discussed with the patient. All questions were answered and informed consent was obtained. Patient identification and proposed procedure were verified by the physician in the pre-procedure area. Mental Status Examination: alert and oriented. Airway Examination: normal oropharyngeal airway and neck mobility. Respiratory Examination: clear to auscultation. CV Examination: normal. Prophylactic Antibiotics: The patient does not require prophylactic antibiotics. Prior Anticoagulants: The patient has taken no anticoagulant or antiplatelet agents. ASA Grade Assessment: II - A patient with mild systemic disease. After reviewing the risks and benefits, the patient was deemed in satisfactory condition to undergo the procedure. The anesthesia plan was to use monitored anesthesia care (MAC). Immediately prior to administration of medications, the patient was re-assessed for adequacy to receive sedatives. The heart rate, respiratory rate, oxygen saturations, blood pressure, adequacy of pulmonary ventilation, and response to care were monitored throughout the procedure. The physical status of the patient was re-assessed after the procedure. After I obtained informed consent, the scope was passed under direct vision. Throughout the procedure, the patient's blood pressure, pulse, and oxygen saturations were monitored continuously. The Colonoscope was introduced through the anus and advanced to the cecum, identified by appendiceal orifice and ileocecal valve. The colonoscopy was performed without difficulty. The patient tolerated the procedure well. The quality of the bowel preparation was adequate. The ileocecal valve, appendiceal orifice, and rectum were photographed. Scope In: 10:30:55 AM Scope Withdrawal Time 0 hours 6 minutes 38 seconds Scope Out: 10:40:20 AM Total Procedure Duration Time 0 hours 9 minutes 25 seconds Findings: The perianal and digital rectal examinations were normal. The entire examined colon appeared normal on direct and retroflexion views. Two small-mouthed diverticula were found in the recto-sigmoid colon. Impression: - The entire examined colon is normal on direct and retroflexion views. - Diverticulosis in the recto-sigmoid colon. - No specimens collected. Recommendation: - Discharge patient to home. - Resume previous diet. - Continue present medications. - Repeat colonoscopy in 5 years for screening purposes. Procedure Code(s): --- Professional --- G0121, Colorectal cancer screening; colonoscopy on individual not meeting criteria for high risk CPT copyright 2021 [employer]. All rights reserved. The codes documented in this report are preliminary and upon flame channeler review may be revised to meet current compliance requirements. Roman Holland DO 02/29/2024 10:53:06 AM This report has been signed electronically. Number of Addenda: 0 Note Initiated On: 02/29/2024 10:23 AM
--- NOTE | 2024-02-29 10:53 | OP.CCLET_ITS ---
02/29/2024 Deuce Chang [address] [place] [address] Re : Colonoscopy procedure for Glenn Santiago Dear Dr. Chang This procedure was performed on Thursday, February 29, 2024. My impressions and recommendations are as follows: Impressions : - The entire examined colon is normal on direct and retroflexion views. - Diverticulosis in the recto-sigmoid colon. - No specimens collected. Recommendations : - Discharge patient to home. - Resume previous diet. - Continue present medications. - Repeat colonoscopy in 5 years for screening purposes. My findings are described in the full procedure note, which is enclosed. If I can be of further assistance, please feel free to contact me at . Sincerely, Roman Holland, 02/29/2024 10:53:06 AM This report has been signed electronically.
--- NOTE | 2024-02-29 13:21 | PCM.POSTANE2 ---
Anesthesia Postop Eval I Sum Postop Eval Completion status Anesthesia document: Postop Eval 1 completed: Yes Anesthesia Postop Eval I Summary Anesthesia Postop Eval I Summary: Anesthesia Postop Eval I: Assessment Summary Airway patent Yes 02/29/24 10:49 [email or web address] Spontaneous unlabored Yes 02/29/24 10:49 [email or web address] respirations Mental status Awake,Calm 02/29/24 10:49 [email or web address] nausea No 02/29/24 10:49 [email or web address] Vomiting No 02/29/24 10:49 [email or web address] Anesthesia Postop Eval I: Fluid Summary Crystalloid volume administer 600 02/29/24 10:49 [email or web address] (ml) Colloids volume administered ( ml) Blood Product volume administered (ml) Total IV fluid infused 600 02/29/24 10:49 [email or web address] Anesthesia Postop Eval I: Summary Notes Anesthesia Complication No 02/29/24 10:49 [email or web address] Anesthesia Complication Comment: Post-operative progress note Anesthesia: Postop Eval II Evaluation Mental status: Awake and Calm Pain Level: 0 nausea: No Vomiting: No Complications Anesthesia Complication: No
== END 2024-02-29 11:23 | disposition home or self-care (01) ==
LOC: EN 08:49 → AC 09:01
PROVIDERS: PCP Family Medicine; Referring Provider Family Medicine; Visit Provider Internal Medicine Gastroenterology
PROC: 0DJD8ZZ Inspection of Lower Intestinal Tract, Via Natural or Artificial Opening Endoscopic (ICD-10-PCS; CPT 45378; principal; 2024-02-29 09:55)
DX: Z12.11 Encounter for screening for malignant neoplasm of colon (principal); K57.30 Diverticulosis of large intestine without perforation or abscess without bleeding; Z80.0 Family history of malignant neoplasm of digestive organs
CPT/HCPCS: 45378; J7120; J2405

== ENCOUNTER → 2025-05-31 | Outpatient (CLI) | payer OTHER, SELFPAY ==
[2025-05-31 12:56] LABS: Synovial Fld Mononuclear WBC # 0.230 10^3/ul; Synovial Fld Mononuclear WBC % 78.8 %; Synovial Fld Polynuclear WBC # 0.062 10^3/uL; Synovial Fld Polynuclear WBC % 21.2 %; Total Cell Count Synovial Fld 0.3460 10^3/uL (0.000-0.000); WBC / Synovial Fluid 0.2920 10^3/uL (0.000-0.002)
[2025-05-31 13:19] LABS: RBC /Synovial Fluid 0.009 10^6/uL (0)
[2025-05-31 13:46] LABS: Appearance /Synovial Fluid Sl hazy (CLEAR); Color / Synovial Fluid Yellow (Pale Yellow)
[2025-05-31 13:47] LABS: Source / Synovial Fluid LEFT ELBOW
[2025-05-31 15:17] LABS: AUTO B FLUID DILUENT BKGD CT WBC <0.1 RBC <0.01 (W<.1,R<.01)
[2025-05-31 15:18] LABS: Body Fluid QC Type(s) BF1Q
[2025-05-31 15:28] LABS: Monocyte /Synovial Fluid 69 %
== END | disposition home or self-care (01) ==
PROVIDERS: PCP Family Medicine
DX: M70.22 Olecranon bursitis, left elbow (principal)
CPT/HCPCS: 87015; 87070; 87075; 87101; 87116; 87205; 87206; 89050; 89051

== ENCOUNTER 2025-06-19 05:58 | Day surgery (SDC) | payer OTHER, SELFPAY ==
[2025-06-15 11:24] LABS: Hematocrit 42.2 % (40-54); Hemoglobin 14.8 g/dL (13.0-16.5); Immature Granulocytes Count 0.020 X10^3/uL (0.0-0.0); Mean Corp Hgb Conc 35.1 g/dL (32-36); Mean Corpuscular Volume 99.3 fL (80-94); Mean Platelet Vol. 9.5 fl (6.2-12.0); NRBC Flagged by Analyzer 0 % (0-5); Platelet Count 338 K/mm3 (150-450); RBC Distribution Width CV 12.6 % (11.6-14.6); RBC Distribution Width SD 46.5 fl (35.1-43.9); Red Blood Count 4.25 M/mm3 (4.6-6.2); White Blood Count 6.2 K/mm3 (4.4-11.0)
[2025-06-15 12:16] LABS: Anion Gap 9 (5-15); BUN 19 mg/dL (4-19); BUN/Creat Ratio 14.8 RATIO (10-20); Calcium,Total 9.4 mg/dL (7.6-11.0); Carbon Dioxide 28.2 mmol/L (21.0-32.0); Chloride 102 mmol/L (98-108); Glucose 102 mg/dL (70-99); Potassium 4.1 mmol/L (3.3-5.1)
[2025-06-19] VITALS (8 sets, daily range): BP systolic 118–137; BP diastolic 82–95; PULSE 65–70; RESP 16; TEMP 36.1–36.4; O2SAT 96–100; BMI 25.3
[2025-06-19] MEDS: Lactated Ringers 1,000 ML 15 ML IV (06:32)
--- NOTE | 2025-06-19 06:41 | PCM.PRE.AN2 ---
ASA Classification* ASA Classification ASA Classification: 2 Assessment & Plan Anesthesia* Anesthesia Assessment Anesthesia Assessment: Discussed sedation and/or anesthesia options, risks, benefits, and alternatives with patient/parents/legal guardian/POA. Questions invited. The patient/parents/legal guardian/POA seems to understand and agrees to proceed with anesthesia plan. Reviewed the physical assessment, medical history, allergy history and patient home medications list prior to surgery/procedure/anesthetic and documented any changes. Performed airway and anesthesia risk assessments. Anesthesia Type Anesthesia Type: General Anesthesia Focused Assessment* Temperature: 97 F Pulse Rate: 65 Blood Pressure: 131/88 Respiratory Rate: 16 Pulse Ox: 99 Airway Assessment Mouth opens: >3 cm Mallampati Score: II Labs Anesthesia Preop lab: CBC WBC, (4.4-11.0) 6.2 K/mm3 06/15/25, 10:38 RBC, (4.6-6.2) 4.25 M/mm3 L 06/15/25, 10:38 Hgb, (13.0-16.5) 14.8 g/dL 06/15/25, 10:38 Hct, (40-54) 42.2 % 06/15/25, 10:38 Plt Count, (150-450) 338 K/mm3 06/15/25, 10:38 CHEMISTRY Potassium, (3.3-5.1) 4.1 mmol/L 06/15/25, 10:38 Sodium, (133-145) 139 mmol/L 06/15/25, 10:38 BUN, (4-19) 19 mg/dL 06/15/25, 10:38 Creatinine, (0.70-1.20) 1.26 mg/dL H 06/15/25, 10:38 Glucose, (70-99) 102 mg/dL H 06/15/25, 10:38 TSH, (0.358-3.74) 1.53 uIU/mL 02/13/20, 08:51 COAG Pre-Assessment Diagnosis/Proposed Procedure Planned Operative Procedure(s): EXCISON LEFT OLCRANON BURSA Anesthesia History Anesthesia History - classification clerk: Anesthesia History - classification clerk Hx Hospitalization No 06/14/25 15:08 Any Problems With Anesthesia No 06/14/25 15:08 Cholinesterase deficiency No 06/14/25 15:08 You/Your Family Experience No 06/14/25 15:08 fever (hyperthermia) with Relationship Recent Exposure to Contagious No 06/19/25 06:21 Disease Does patient have nerve No 06/14/25 15:08 stimulator Patient instructed to have device shut off --Does patient have Pacemaker No 06/19/25 06:21 or ICD? When Was Last Pacemaker Check QUESTION #4 FULL TEXT: You/Your Family Experience fever (hyperthermia) with Anesthesia Last Oral Intake Last Oral intake: Last Oral Intake NPO since 22:30 06/19/25 06:21 Meds taken in AM with sips of water? Meds patient instructed to take am of surgery PONV PONV - classification clerk: PONV - classification clerk Female No 06/14/25 15:08 HX of Motion Sickness No 06/14/25 15:08 HX of N/V After Surgery No 06/14/25 15:08 Non-Smoker Yes 06/14/25 15:08 Duration of Surgery greater Yes 06/14/25 15:08 than 60 minutes Number of Risk Factors 2 06/14/25 15:08 PONV Score Moderate Risk 06/14/25 15:08 Height & Weight Height & Weight: Anesthesia: Height & Weight Height 6 ft 06/19/25 06:21 Weight: 84.822 kg 06/19/25 06:21 Body Mass Index (BMI) 25.3 06/19/25 06:21 Respiratory Assessment Respiratory Assessment - classification clerk: Respiratory Tract Infection Hx - classification clerk Hx Respiratory Tract Infection No 06/14/25 15:08 STOP Sleep Apnea STOP Sleep Apnea - classification clerk: STOP Sleep Apnea - classification clerk Hx Hypertension No 06/14/25 15:08 Hx Sleep Apnea No 06/14/25 15:08 CPAP No 06/14/25 15:08 BIPAP No 06/14/25 15:08 Do you snore loudly (louder No 06/14/25 15:08 than talking or can be heard Do you often feel tired/ No 06/14/25 15:08 fatigued/ sleepy during daytime? Has anyone observed you stop No 06/14/25 15:08 breathing during sleep? STOP Results Negative 06/14/25 15:08 QUESTION #5 FULL TEXT : Do you snore loudly (louder than talking or can be heard through closed doors)? 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 Specify any problems Hx of Preganancy in last 3 N/A 06/14/25 15:08 Months Nurse Filling Out Transfusion [email or web address] 06/14/25 15:08 & Questions: Date: 06/14/25 06/14/25 15:08 Time: 15:10 06/14/25 15:08 Patient unable to answer at this time (ie. confused, unrespo /Reproduction History /Reproductive History - classification clerk: /Reproductive Hx- classification clerk Hx Now Gestational Age (in weeks): EDC: Hx Hx Para Hx Section SAB No 06/14/25 15:08 Active Medications Active Medications: Current Medications Generic Name Dose Route Start Last Admin Trade Name Freq PRN Reason Stop Dose Admin Cefazolin Sodium 1 gm in 50 mls @ 100 mls/hr 06/19/25 15:00 IV 06/19/25 15:29 INTRAOP ONE Lactated Ringer's 1,000 mls @ 15 mls/hr 06/19/25 06:15 06/19/25 06:32 IV 15 mls/hr .Q48H MARC Administration PFSH Medical History Wears glasses Alcohol use History of steroid therapy Colonoscopy planned Wears contact lenses Non-smoker History of stress test Home Medications ?Medication ?Instructions ?Recorded ?Last Taken ?Type NK 02/25/24 Unknown History Allergy/AdvReac Type Severity Reaction Status Date / Time No Known Allergies Allergy Verified 06/19/25 06:20 Family History Father Colon polyps Aunt Colon polyps Grandmother Colon cancer Surgical History H/O hernia repair History of wisdom tooth extraction History of repair of right rotator cuff History of total right knee replacement H/O nasal septoplasty achilles tendon reconstruction S/P left rotator cuff repair S/P right knee arthroscopy H/O arthroscopic knee surgery S/P ACL reconstruction Social History household members: spouse current occupational status: employed Smoking Status: Never smoker alcohol intake: current alcohol intake frequency: a few times a week substance use type: does not use Review of Systems (Anesthesia) ROS Narrative System reviewed and no additional complaints, except as documented.
[2025-06-19] MEDS: Midazolam 2 MG/2 ML Syringe IV (07:24)
[2025-06-19] MEDS: Cefazolin 1 GM/5 ML Vial IV (07:24)
[2025-06-19] MEDS: Lidocaine 1% (5 ml sdv) 5 ML Vial 8 ML IV (07:29)
--- NOTE | 2025-06-19 07:30 | BUR_PTH ---
PATIENT: MILDRED PINEDA LOC: [facility] [place] U#:[id number] AGE/SX: 55/M ROOM: RE06/19/[address]: Dr. Steve Mckeon MD : 1970 BED: DIS: 06/19/2025 SPEC #: [id number] RECD: 06/19/25 10:11 STATUS: KORINA REAlma #: [id number] VÍCTOR: 06/19/25 07:[address]: Steve Mckeon DEPT: SURGICAL PATHOLOGY RECD BY: Ronn Gill ENTERED: 06/19/25 11:25 SP TYPE: BURSA ANGELICA DR: Dr. Deuce Chang, DO Tissues: A - ANAI Soto Procedures: Surgery Specimen Level III HEADER OPERATION: Excision left olecranon bursa PRE-OP DIAGNOSIS: Left olecranon bursa TISSUE SUBMITTED: A- Left olecranon bursa MICROSCOPIC DIAGNOSIS A. Left olecranon, bursa, excision: * Fibrous cyst wall with reactive changes and mild chronic inflammation. MICROSCOPIC DESCRIPTION Slides are reviewed. GROSS DESCRIPTION A. Received in formalin labeled with the patient's name and date of . Designated as left bursa is a kay-white to red, somewhat nodular and fibrotic, disrupted portion of tissue, collectively measuring 3.6 x 2.5 1.0 cm. Sectioning reveals diffusely fibrotic cut surfaces. Stock Parts Fabricator sections are submitted in 2 cassettes. [place] 06/19/2025 CPT:33292
[2025-06-19] MEDS: fentaNYL 100 MCG/2 ML Ampul IV (07:39)
--- NOTE | 2025-06-19 08:20 | PCM.POST.ANE ---
Anesthesia: Postop Eval I Current Vital Signs Temperature: 97 F Pulse Rate: 70 Blood Pressure: 124/82 Respiratory Rate: 16 Pulse Ox: 97 Assessment Airway patent: Yes Spontaneous unlabored respirations: Yes nausea: No Vomiting: No Anesthesia Complication: No Fluid Hydration Crystalloid volume administer (ml): 800 Total IV fluid infused: 800 Progress Note Anesthesia document: Postop Eval 1 completed: Yes
--- NOTE | 2025-06-19 09:01 | POSTOPAN2_ITS ---
Anesthesia Postop Eval I Sum Postop Eval Completion status Anesthesia document: Postop Eval 1 completed: Yes Anesthesia Postop Eval I Summary Anesthesia Postop Eval I Summary: Anesthesia Postop Eval I: Assessment Summary Airway patent Yes 06/19/25 08:20 [email or web address] Spontaneous unlabored Yes 06/19/25 08:20 HAIR [email or web address] respirations Mental status nausea No 06/19/25 08:20 HAIR [email or web address] Vomiting No 06/19/25 08:20 [email or web address] Anesthesia Postop Eval I: Fluid Summary Crystalloid volume administer 800 06/19/25 08:20 [email or web address] (ml) Colloids volume administered ( ml) Blood Product volume administered (ml) Total IV fluid infused 800 06/19/25 08:20 [email or web address] Anesthesia Postop Eval I: Summary Notes Anesthesia Complication No 06/19/25 08:20 [email or web address] Anesthesia Complication Comment: Post-operative progress note Anesthesia: Postop Eval II Evaluation Mental status: Awake Pain Level: 0 nausea: No Vomiting: No
--- NOTE | 2025-06-19 09:01 | PCM.POSTANE2 ---
Anesthesia Postop Eval I Sum Postop Eval Completion status Anesthesia document: Postop Eval 1 completed: Yes Anesthesia Postop Eval I Summary Anesthesia Postop Eval I Summary: Anesthesia Postop Eval I: Assessment Summary Airway patent Yes 06/19/25 08:20 SPORTS [email or web address] Spontaneous unlabored Yes 06/19/25 08:20 SPORTS [email or web address] respirations Mental status nausea No 06/19/25 08:20 SPORTS [email or web address] Vomiting No 06/19/25 08:20 SPORTS [email or web address] Anesthesia Postop Eval I: Fluid Summary Crystalloid volume administer 800 06/19/25 08:20 SPORTS [email or web address] (ml) Colloids volume administered ( ml) Blood Product volume administered (ml) Total IV fluid infused 800 06/19/25 08:20 SPORTS [email or web address] Anesthesia Postop Eval I: Summary Notes Anesthesia Complication No 06/19/25 08:20 SPORTS [email or web address] Anesthesia Complication Comment: Post-operative progress note Anesthesia: Postop Eval II Evaluation Mental status: Awake Pain Level: 0 nausea: No Vomiting: No
--- NOTE | 2025-06-19 09:07 | PCM.OPRPT ---
Operative Report (Standard) Operative Information Date of Procedure: 06/19/25 Pre-Operative Diagnosis: Left recurrent aseptic olecranon bursitis Post-Operative Diagnosis: Left recurrent aseptic olecranon bursitis Surgery/Procedure Performed: Left olecranon bursectomy hoop maker: Yes Computer Processing Scheduler: Juan Jose Rivas Tasks completed by first aid trainer: Opening & closing, Dissecting tissue, Removing tissue and Retracting Additional casino assistant manager?: No Type of Anesthesia: General RN Documented Start/Stop Times: Operation Date: 06/19/25 07:30 Case Time Into Pre-Op 06/19/25 06:14 Out of Pre-Op 06/19/25 07:21 Anesthesia Start 06/19/25 07:24 Into Room 06/19/25 07:24 Procedure Start 06/19/25 07:43 Procedure End 06/19/25 08:07 Anesthesia End 06/19/25 08:16 Out of Room 06/19/25 08:16 Into Recovery 06/19/25 08:18 Into Phase II Recovery 06/19/25 08:48 Out of Recovery 06/19/25 08:48 Procedure Start Time: 07:43 Procedure Stop Time: 08:07 Select all DRAINS/GRAFTS/IMPLANTS that apply: None Special Medications: 1 g Ancef Estimated Blood Loss: 2 mL Fluids Replaced: 700 mL crystalloid Specimen collected: Yes Description of specimen(s) removed: Left olecranon bursa Description of surgery: On the date of the procedure patient's left elbow was marked in the preoperative area. Patient was brought back to the operating room where they are transferred to the table in supine position. Anesthesia assumed controlled C-spine airway and remained controlled throughout the remainder of the procedure. After patient was appropriate anesthetized all bony prominences identified well-padded. Bump was placed underneath the left side and patient was placed in the lazy lateral position. Patient was secured to the bed and turning was placed on the left upper arm. Left upper extremity was prepped in a sterile fashion while surgeon scrubbed. Upon reentering the room the left upper extremity was draped in a standard orthopedic fashion and a timeout was called. Everyone agreed upon the side, the site, the procedure to be performed, patient's identity and antibiotics given. Esmarch bandage used to exsanguinate the extremity and tourniquet was placed at 250 mmHg. Incision was taken down through skin until we are able to identify the bursa. Once we initially incised the bursa the bursa sac was ruptured and we carefully dissected out the bursa. All bursal tissue was removed using sharp dissection and curettage from the proximal portion of the olecranon and deep spaces. The bursa once resected was sent for pathology. Wound was copiously irrigated out with normal saline. Skin was closed with 2-0 Vicryl and final skin closure was done with 3 oh barbed Monocryl suture and Steri-Strips. Bulky dressing was placed. Patient was awakened anesthesia and transferred to PACU for recovery. Postop plan: Patient will wear his bulky dressing for 7 days. Will keep the incision clean and dry once he removes the dressing he can continue to shower as long as the incision is clean and dry. He can begin range of motion after 7 days. Return to the office in 2 weeks for wound check if he is doing well at that time we will follow-up as needed. Surgical Findings: Complete resection of bursa Complications Complications: No Admit VTE Documentation VTE Present on Admission: No VTE Mechan Device Prophylaxis: SCD's VTE Pharm Prophylaxis ordered?: No Reason prophylaxis not ordered: Treatment Not Indicated
== END 2025-06-19 09:19 | disposition home or self-care (01) ==
LOC: SDC 06:00 → AC 06:01
PROVIDERS: PCP Family Medicine; Referring Provider Specialist; Visit Provider Specialist
PROC: (CPT 24105; principal; 2025-06-19 07:15)
DX: M70.22 Olecranon bursitis, left elbow (principal); E66.3 Overweight; Z68.26 Body mass index [BMI] 26.0-26.9, adult
CPT/HCPCS: 24105; 36415; 80048; 85025; 88304; 93005; J2405